=== PATIENT | male | born 2005 | race Caucasian/White ===

== ENCOUNTER 2024-11-30 14:09 | Emergency (ER) | payer OTHER, SELFPAY ==
[2024-11-30 14:10] VITALS: BMI 25.9
[2024-11-30 14:13] VITALS: BP 147/93
[2024-11-30 18:46] VITALS: BP 138/79
--- NOTE | 2024-11-30 19:51 | ED.GENMED ---
History of Present Illness
General
Chief Complaint: Facial Problem
Source: patient
Exam Limitations: none
Time Seen by Provider: 11/30/24 17:43
Nursing documentation reviewed up to this point in time: agreed with
History of Present Illness
History of Present Illness:
Patient presents to ED secondary to left cheek swelling with pain after he was hit with a thrown baseball this afternoon. Since then, patient has experienced nosebleed, when he blew his nose. Denies any other injuries. Denies headache. Denies
blurred vision. Denies nausea or vomiting. Denies a toothache. Denies difficulty swallowing or speech.
Review of Systems
Review of Systems
Allergies reviewed?: Yes
All Other Systems: ROS reviewed and negative except as documented in HPI and ROS
Constitutional: Reports no symptoms
ABD/GI: Reports no symptoms; Denies nausea or vomiting
Musculoskeletal: Reports no symptoms
Skin: Reports other (Facial swelling with pain)
Neurological: Reports no symptoms; Denies dizzy or headache
Phy Exam
Physical Exam
Physical Exam:
Physical Exam
General: mild distress, not acutely ill. afebrile
Head: nc/at. eomi. blood noted along the lateral aspect of left conjunctiva, with mild periorbital ecchymosis
Neck: supple. normal range of motion. Nose: no epistaxis noted.
Neuro: alert and oriented x 3. no focal neurological deficits
Skin: left facial swelling noted with mild tenderness to palpation.
Psychiatric: well kept. interactive and cooperative
Extremities: no edema. no calf tenderness.
Course
Orders/Labs/Results
Orders:
Orders
11/30/24 17:56
CT Facial Bones W/o Iv Contras Urgent
Comment:
Reason For Exam: left facial trauma with thrown baseball
11/30/24 20:47
Amoxicillin 875 mg/Clav 125 mg [Augmentin 875 mg/125 mg] 1 tablet PO NOW STA
Vital Signs
Initial and Last Documented VS:
Initial Vital Signs
Temp Pulse Resp BP Pulse Ox
98.2 F 79 16 147/93 100
11/30/24 14:13 11/30/24 14:13 11/30/24 14:13 11/30/24 14:13 11/30/24 14:13
Last Documented Vital Signs
Temp Pulse Resp BP Pulse Ox
98.2 F 80 20 130/86 98
11/30/24 14:13 11/30/24 20:00 11/30/24 20:00 11/30/24 20:00 11/30/24 20:00
MDM/Problems Addressed
MDM/Problems Addressed:
CT facial report reviewed and discussed with on-call OMFS, Dr. Lloyd. Feels the patient can be discharged home for an outpatient follow-up, but does recommend starting patient on Augmentin with sinus precautions. Patient and his mother
expressed understanding at time of discharge.
*Critical Care Note
Total Time (30-74mins, 75-104mins- exclusive of procedures): Not Applicable
ED Attending Note
-
Portions of this chart may have been created with voice recognition software.� Occasional wrong word or��sound alike� substitutions may have occurred due to the inherent limitations of voice recognition software.
Discharge Plan
Departure
Patient Disposition: Home (Routine Discharge)
Date of Disposition: 11/30/24
Time of Disposition: 20:48
Patient with high blood pressure during this ER visit?: Yes
Condition: Good
Discharge Problem:
Facial fracture
Instructions: Facial Fracture (DC)
Prescriptions:
New
amoxicillin-pot clavulanate 875-125 mg tablet
1 tab PO Q12H Qty: 13 0RF
Referrals:
Madonna Lloyd, DDS [Active] -
UNKNOWN - PT DOES,NOT KNOW [Family Provider] -
Stand Alone Forms: Back to School
Activity Restrictions/Additional Instructions:
As discussed, please follow-up with referred oral maxillary facial surgeon for reevaluation. Your prescription has been sent electronically to [facility] pharmacy in [place].
Interventions
Interventions:
*Risk Screen - Suicide Last Done: 11/30/24 14:13
*General Assessment Last Done: 11/30/24 18:47
*Neglect/Abuse Screening Last Done: 11/30/24 14:13
ED- Fall Risk Assessment Last Done: 11/30/24 18:47
*ED COVID-19 Vaccine History Last Done: 11/30/24 18:47
*Nursing Disposition Last Done: 11/30/24 21:13
ED- Neurological Assessment Last Done: 11/30/24 18:46
ED-Skin Assessment Last Done: 11/30/24 18:46
Discharge Date and Time
Discharge Date/Time: 11/30/24 21:14
Print Language: [id number]
[2024-11-30 20:00] VITALS: BP 130/86
[2024-11-30] MEDS: AUGMENTIN 875 MG/125 MG 1 TABLET PO (21:07)
== END 2024-11-30 21:14 | disposition home or self-care (01) ==
LOC: EMR 14:09
PROVIDERS: EMERGENCY PHYSICIAN Emergency Medicine
DX: S02.92XA Unspecified fracture of facial bones, initial encounter for closed fracture (principal); S00.12XA Contusion of left eyelid and periocular area, initial encounter; R04.0 Epistaxis; W21.03XA Struck by baseball, initial encounter; Y93.64 Activity, baseball; R03.0 Elevated blood-pressure reading, without diagnosis of hypertension; E03.9 Hypothyroidism, unspecified
CPT/HCPCS: 99284; 70486